=== PATIENT | female | born 1990 | race Caucasian/White ===

== ENCOUNTER 2021-10-26 12:56 | Emergency (ER) | payer OTHER ==
[~2021-10-26] VITALS: Ht 172.7 cm; Wt 87.8 kg
[2021-10-26 13:27] VITALS: BP 120/95
--- NOTE | 2021-10-26 13:40 | NUR ---
COVID VÍCTOR, FLU SWABS DONE.
--- NOTE | 2021-10-26 15:36 | NUR ---
PT AMBULATED TO ER BED 9
--- NOTE | 2021-10-26 15:40 | NUR ---
WALKED IN C/O HEADACHE, BODY ACHE, SOB AND NV X3 WKS. PT WAS PX ATBX, PREDNISONE AND IBUPROFEN FROM URGENT CARE 3 DAYS AGO. TESTED NEG FOR COVID 4 DAYS AGO. VITALS STABLE. ROOM AIR, AFEBRILE, VITALS STABLE. SWABBED FOR COVID AND FLU. URINE COLLECTED
[2021-10-26 15:54] LABS: BASOPHILS % (AUTO) 0.2 % (0.0-2.0); HEMATOCRIT 44.8 % (36-48); HEMOGLOBIN 14.8 g/dL (12.0-16.0); LYMPHOCYTES # (AUTO) 0.6 K/uL (2.5-16.5); LYMPHOCYTES % (AUTO) 9.5 % (20.5-51.1); MEAN CORPUSCULAR HEMOGLOBIN 29 pg (27-31); MEAN CORPUSCULAR HGB CONC 33 g/dL (33-37); MEAN CORPUSCULAR VOLUME 88.4 fL (80-94); MONOCYTES # (AUTO) 0.3 K/uL (0.8-1.0); MONOCYTES % (AUTO) 4.9 % (1.7-9.3); NEUTROPHILS # (AUTO) 5.8 K/uL (1.8-7.7); NEUTROPHILS % (AUTO) 85.4 % (42.2-75.2); PLATELET COUNT (AUTO) 299 K/uL (140-450); RED BLOOD CELL COUNT(AUTO) 5.07 MIL/uL (4.20-5.40); RED CELL DISTRIBUTION WIDTH 13.4 % (11.6-13.7); WHITE BLOOD COUNT (AUTO) 6.8 K/uL (4.8-10.8)
--- NOTE | 2021-10-26 16:11 | NUR ---
XR AT BEDSIDE
[2021-10-26 16:17] LABS: ALBUMIN 4.4 g/dL (3.4-5.0); ASPARTATE AMINOTRANSFERASE 18 U/L (15-37); CHLORIDE 107 mmol/L (98-107); CREATININE 0.9 mg/dL (0.6-1.3); GFR ARICAN-AMERICAN 95 mL/min (>90); GLUCOSE 111 mg/dL (74-106); SODIUM SERUM 141 mmol/L (136-145); THYROID STIMULATING HORMONE 0.37 uIU/mL (0.34-3.74); TOTAL BILIRUBIN 0.3 mg/dL (0.0-1.0); UREA NITROGEN, BLOOD 8 mg/dL (7-18)
[2021-10-26 16:21] VITALS: BP 126/86
--- NOTE | 2021-10-26 17:00 | NUR ---
Patient discharged with v/s stable. Written and verbal after care instructions given and explained. Patient verbalized understanding. Ambulatory with steady gait. All questions addressed prior to discharge. Advised to follow up with PMD.
== END 2021-10-26 17:00 | disposition home or self-care (01) ==
LOC: MED 12:56
DX: J10.1 Influenza due to other identified influenza virus with other respiratory manifestations (principal); Z20.822 Contact with and (suspected) exposure to COVID-19; R06.02 Shortness of breath; R42 Dizziness and giddiness; R51.9 Headache, unspecified; M79.10 Myalgia, unspecified site
CPT/HCPCS: 36415; 71045; 80053; 81002; 81025; 84443; 84484; 85025; 85379; 93005; 99285